=== PATIENT | male | born 1950 | race Caucasian/White ===

== ENCOUNTER 2018-05-14 21:29 | Emergency (ER) | payer BC ==
[2018-05-14] MEDS ORDERED: IBUPROFEN 400 MG TABLET (FP) PO ONE ×2 (21:34→21:35)
--- NOTE | 2018-05-14 22:15 | PDOC ---
History of Present Illness - General History Source: Patient Exam Limitations: No Limitations - History of Present Illness Initial Comments: 05/14/18 22:18 The patient is a year old male, with a significant past medical history of migraines and hyperlipidemia, who presents to the emergency department with left ankle pain and swelling s/p mechanical slip down a couple of steps this evening. He states he misjudged the last step of the staircase and slid on his left ankle. He reports pain to the lateral aspect of his left ankle. He reports pain exacerbation with weight bearing. He denies numbness or tingling. He denies knee pain. He denies head trauma. The patient denies chest pain, shortness of breath, headache and dizziness. The patient denies fever, chills, nausea, vomit, diarrhea and constipation. The patient denies dysuria, frequency, urgency and hematuria. Allergies: penicillins, sulfa, corn, nuts, tetanus PCP - Dr. Denson <Emma Friend - Last Filed: 05/14/18 22:18> <Chris Zacarias - Last Filed: 05/15/18 04:26> - General Chief Complaint: Injury Stated Complaint: L ANKLE PAIN/SWELLING Time Seen by Provider: 05/14/18 22:05 Past History <Emma Friend - Last Filed: 05/14/18 22:18> - Past Medical History COPD: No HTN: Yes Hypercholesterolemia: Yes Kidney Stones: Yes - Suicide/Smoking/Psychosocial Hx Smoking History: Never smoked Have you smoked in the past 12 months: No Number of Cigarettes Smoked Daily: 0 Information on smoking cessation initiated: No Hx Alcohol Use: No Drug/Substance Use Hx: No Substance Use Type: None <Chris Zacarias - Last Filed: 05/15/18 04:26> - Past Medical History Allergies/Adverse Reactions: Allergies Allergy/AdvReac Type Severity Reaction Status Date / Time Penicillins Allergy Verified 04/10/15 09:30 shellfish derived Allergy Verified 04/10/15 10:11 Sulfa (Sulfonamide Allergy Verified 04/10/15 09:31 Antibiotics) Home Medications: Ambulatory Orders Atenolol [Tenormin -] 50 mg PO DAILY 04/10/15 Atorvastatin Ca [Lipitor] 40 mg PO HS 04/10/15 Tamsulosin HCl [Flomax] 0.4 mg PO DAILY #14 capsule 04/10/15 Review of Systems - Review of Systems Able to Perform ROS?: Yes Comments:: 05/14/18 22:18 CONSTITUTIONAL: Absent: fever, chills, diaphoresis, generalized weakness, malaise, loss of appetite HEENT: Absent: rhinorrhea, nasal congestion, throat pain, throat swelling, difficulty swallowing, mouth swelling, ear pain, eye pain, visual Changes CARDIOVASCULAR: Absent: chest pain, syncope, palpitations, irregular heart rate, lightheadedness , peripheral edema RESPIRATORY: Absent: cough, shortness of breath, dyspnea with exertion, orthopnea, wheezing, stridor, hemoptysis GASTROINTESTINAL: Absent: abdominal pain, abdominal distension, nausea, vomiting, diarrhea, constipation, melena, hematochezia GENITOURINARY: Absent: dysuria, frequency, urgency, hesitancy, hematuria, flank pain, genital pain MUSCULOSKELETAL: (+) Left ankle pain and swelling. Absent: myalgia SKIN: Absent: rash, itching, pallor HEMATOLOGIC/IMMUNOLOGIC: Absent: easy bleeding, easy bruising, lymphadenopathy, frequent infections ENDOCRINE: Absent: unexplained weight gain, unexplained weight loss, heat intolerance, cold intolerance NEUROLOGIC: Absent: headache, focal weakness or paresthesias, dizziness, unsteady gait, seizure, mental status changes, bladder or bowel incontinence PSYCHIATRIC: Absent: anxiety, depression, suicidal or homicidal ideation, hallucinations. <Emma Friend - Last Filed: 05/14/18 22:18> *Physical Exam - Physical Exam Comments: 05/14/18 22:18 GENERAL: Well developed, well nourished. Awake and alert. No acute distress. HEENT: Normocephalic, atraumatic. PERRLA, EOMI. No conjunctival pallor. Sclera are non- icteric. Moist mucous membranes. Oropharynx is clear. NECK: Supple. Full ROM. No JVD. Carotid pulses 2+ and symmetric, without bruits. No thyromegaly. No lymphadenopathy. CARDIOVASCULAR: Regular rate and rhythm. No murmurs, rubs, or gallops. Distal pulses are 2+ and symmetric. PULMONARY: No evidence of respiratory distress. Lungs clear to auscultation bilaterally. No wheezing, rales or rhonchi ABDOMINAL: Soft. Non-tender. Non-distended. No rebound or guarding. No organomegaly. Normoactive bowel sounds. MUSCULOSKELETAL (+) Left lateral malleolus tenderness. Louis. No posterior tibial tenderness. Normal range of motion at all joints. No bony deformities. No CVA tenderness. EXTREMITIES: (+) Left lateral malleolus tenderness. Louis. No posterior tibial tenderness. No cyanosis. No clubbing. No calf tenderness. SKIN: Warm and dry. Normal capillary refill. No rashes. No jaundice. NEUROLOGICAL: Alert, awake, appropriate. Cranial nerves 2-12 intact. No deficits to light touch in lower extremities. No motor deficits in the in face, upper extremities and lower extremities. Normoreflexic in the upper and lower extremities. Normal speech. Gait unassessed secondary to pain. PSYCHIATRIC: Cooperative. Good eye contact. Appropriate mood and affect. <Emma Friend - Last Filed: 05/14/18 22:18> ED Treatment Course - Medications Given in the ED: ED Medications Discontinued Medications Generic Name Dose Route Start Last Admin Trade Name Freq PRN Reason Stop Dose Admin Ibuprofen 800 mg 05/14/18 21:34 05/14/18 21:36 Motrin - PO 05/14/18 21:35 800 mg ONCE ONE Administration <Emma Friend - Last Filed: 05/14/18 22:18> - RADIOLOGY Radiology Studies Ordered: Category Date Time Status ANKLE-LEFT [RAD] Stat Radiology 05/14/18 21:35 Taken - Medications Given in the ED: ED Medications Discontinued Medications Generic Name Dose Route Start Last Admin Trade Name Freq PRN Reason Stop Dose Admin Ibuprofen 800 mg 05/14/18 21:34 05/14/18 21:36 Motrin - PO 05/14/18 21:35 800 mg ONCE ONE Administration <Chris Zacarias - Last Filed: 05/15/18 04:26> Medical Decision Making - Medical Decision Making 05/15/18 04:26 plain films -, as read by me [employer] [employer] education a/p ankle sprain nsaids <Chris Zacarias - Last Filed: 05/15/18 04:26> *DC/Admit/Observation/Transfer - Attestations Scribe Attestion: 05/14/18 22:19 Documentation prepared by Emma Friend, acting as medical field representative for Chris Zacarias MD <Emma Friend - Last Filed: 05/14/18 22:18> <Chris Zacarias - Last Filed: 05/15/18 04:26> Diagnosis at time of Disposition: Ankle sprain Qualifiers: Encounter type: initial encounter Involved ligament of ankle: unspecified ligament Laterality: left Qualified Code(s): S93.402A - Sprain of unspecified ligament of left ankle, initial encounter - Discharge Dispostion Disposition: HOME Condition at time of disposition: Good - Referrals Referrals: Kem Denson MD [Primary Care Provider] - - Patient Instructions Printed Discharge Instructions: How to Use Crutches, DI for Ankle Sprain - Post Discharge Activity
[2018-05-14 22:19] VITALS: BP 129/80; PULSE 79; TEMP 98; BMI 31.0
== END 2018-05-14 22:20 | disposition home or self-care (01) ==
LOC: FER 21:29
DX: S93.402A Sprain of unspecified ligament of left ankle, initial encounter (principal); X58.XXXA Exposure to other specified factors, initial encounter; Y93.89 Activity, other specified; Y92.9 Unspecified place or not applicable; E78.5 Hyperlipidemia, unspecified; G43.909 Migraine, unspecified, not intractable, without status migrainosus; I10 Essential (primary) hypertension
CPT/HCPCS: 73610-TC-LT-FY; 99282-25

== ENCOUNTER 2021-01-19 02:44 | Emergency (ER) | payer BC ==
[2021-01-19] MEDS ORDERED: SODIUM CHLORIDE 1,000 ML IV STA (02:58)
[2021-01-19 03:03] VITALS: BP 143/88; PULSE 66; TEMP 97.7; BMI 31.0
[2021-01-19] MEDS ORDERED: KETOROLAC TROMETHAMINE 30 MG/1 ML VIAL IVPUSH ONE (03:20)
[2021-01-19] MEDS ORDERED: KETOROLAC TROMETHAMINE 30 MG/1 ML VIAL ONE (03:21)
[2021-01-19 04:13] LABS: BASO % 1.1 % (0-2.0); EOS % 7.7 % (0-4.5); HEMATOCRIT 44.1 % (35.4-49); HEMOGLOBIN 14.9 GM/dL (11.7-16.9); LYMPH % 22.2 % (8-40); MCH 30.5 pg (25.7-33.7); MCHC 33.8 g/dl (32.0-35.9); MEAN CELL VOLUME 90.1 fl (80-96); MEAN PLT VOLUME 9.4 fl (7.5-11.1); MONO % 8.2 % (3.8-10.2); NEUT % 60.8 % (42.8-82.8); PLATELET COUNT 152 10^3/uL (134-434); RBC 4.89 M/mm3 (4.00-5.60); RDW 14.8 % (11.9-15.9); WHITE BLOOD COUNT 7.8 K/mm3 (4.0-10.0)
[2021-01-19 04:14] LABS: PH,URINE 5.5 (5.0-8.0); URINE APPEARANCE CLEAR; URINE BILIRUBIN NEGATIVE (NEGATIVE); URINE COLOR YELLOW; URINE GLUCOSE (UA) NEGATIVE (NEGATIVE); URINE KETONE TRACE (NEGATIVE); URINE LEUK ESTERASE NEGATIVE (NEGATIVE); URINE NITRITE NEGATIVE (NEGATIVE); URINE PROTEIN NEGATIVE (NEGATIVE); URINE UROBILINOGEN 0.2 mg/dL (0.2-1.0)
[2021-01-19 04:37] LABS: ALBUMIN 3.9 g/dl (3.4-5.0); BLOOD UREA NITROGEN 10.6 mg/dL (7-18); CALCIUM 8.4 mg/dL (8.5-10.1)
[2021-01-19 04:42] LABS: BILIRUBIN,TOTAL 0.7 mg/dL (0.2-1); TOT PROT 7.2 g/dl (6.4-8.2)
[2021-01-19] MEDS ORDERED: ONDANSETRON 4 MG/2 ML VIAL ONE (04:43)
[2021-01-19] MEDS ORDERED: ONDANSETRON 4 MG/2 ML VIAL IVPUSH ONE (04:43)
[2021-01-19] MEDS ORDERED: TAMSULOSIN HCL 0.4 MG CAP PO ONE (05:14)
[2021-01-19] MEDS ORDERED: TAMSULOSIN HCL 0.4 MG CAP ONE (05:17)
== END 2021-01-19 05:29 | disposition home or self-care (01) ==
LOC: FER 02:44
PROC: 3E0333Z Introduction of Anti-inflammatory into Peripheral Vein, Percutaneous Approach (ICD-10-PCS; principal; 2021-01-19)
PROC: 3E033GC Introduction of Other Therapeutic Substance into Peripheral Vein, Percutaneous Approach (ICD-10-PCS; 2021-01-19)
PROC: 3E0337Z Introduction of Electrolytic and Water Balance Substance into Peripheral Vein, Percutaneous Approach (ICD-10-PCS; 2021-01-19)
DX: N23 Unspecified renal colic (principal)
CPT/HCPCS: 36415; 74176-TC; 80053; 81003; 85025; 99284-25

== ENCOUNTER 2021-03-04 15:20 | Emergency (ER) | payer BC ==
[2021-03-04 15:27] VITALS: BP 135/84; PULSE 70; TEMP 98.3; BMI 30.2
[2021-03-04 15:58] LABS: EPITHELIAL CELLS RARE /hpf
[2021-03-04] MEDS ORDERED: KETOROLAC TROMETHAMINE 15 MG/ML VIAL IVPUSH ONE (16:04)
[2021-03-04] MEDS ORDERED: KETOROLAC TROMETHAMINE 15 MG/ML VIAL ONE (16:04)
[2021-03-04 16:21] LABS: BASO % 1.7 % (0-2.0); HEMATOCRIT 44.9 % (35.4-49); HEMOGLOBIN 14.6 GM/dl (11.7-16.9); LYMPH % 17.8 % (8-40); MCH 29.9 pg (25.7-33.7); MCHC 32.4 g/dl (32.0-35.9); MEAN CELL VOLUME 92.1 fl (80-96); MEAN PLT VOLUME 9.2 fl (7.5-11.1); MONO % 7.9 % (3.8-10.2); NEUT % 65.6 % (42.8-82.8); PLATELET COUNT 162 10^3/uL (134-434); RBC 4.88 M/mm3 (4.00-5.60); WHITE BLOOD COUNT 6.9 K/mm3 (4.0-10.8)
[2021-03-04 16:28] LABS: ALBUMIN 4.1 g/dl (3.4-5.0); BILIRUBIN,TOTAL 1.1 mg/dl (0.2-1); CALCIUM 8.9 mg/dl (8.5-10); CREATININE 0.8 mg/dl (0.55-1.3)
[2021-03-04] MEDS ORDERED: SODIUM CHLORIDE 0.9% 500 ML INFUS.BAG IV ONE (17:06)
[2021-03-04] MEDS ORDERED: TAMSULOSIN HCL 0.4 MG CAP PO ONE (17:55)
[2021-03-04] MEDS ORDERED: NAPROXEN 375 MG TABLET PO ONE (17:56)
[2021-03-04] MEDS ORDERED: TAMSULOSIN HCL 0.4 MG CAP ONE (17:58)
[2021-03-04] MEDS ORDERED: NAPROXEN 375 MG TABLET ONE (17:59)
== END 2021-03-04 18:35 | disposition home or self-care (01) ==
LOC: FER 15:20
PROC: 3E0333Z Introduction of Anti-inflammatory into Peripheral Vein, Percutaneous Approach (ICD-10-PCS; principal; 2021-03-04)
DX: N20.0 Calculus of kidney (principal); N23 Unspecified renal colic
CPT/HCPCS: 36415; 74176-TC; 80053; 81003; 81015; 85025; 99284-25